=== PATIENT | male | born 1970 | race Two or more races ===

== ENCOUNTER 2016-03-26 20:44 | Emergency (ER) | payer SELFPAY ==
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
[2016-03-26] MEDS ORDERED: ACETAMINOPHEN 325 MG TABLET ONE (23:56)
[2016-03-26] MEDS ORDERED: IBUPROFEN 600 MG TABLET ONE (23:56)
[2016-03-26] MEDS ORDERED: MORPHINE SULFATE 4 MG/ML SYRINGE ONE (23:57)
[2016-03-27] MEDS ORDERED: OXYCODONE HCL 5 MG TABLET ONE (00:08)
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
== END 2016-03-27 01:14 | disposition home or self-care (01) ==
LOC: ED 20:44
DX: S43.102A Unspecified dislocation of left acromioclavicular joint, initial encounter (principal); S22.42XA Multiple fractures of ribs, left side, initial encounter for closed fracture; F17.210 Nicotine dependence, cigarettes, uncomplicated; V19.9XXA Pedal cyclist (driver) (passenger) injured in unspecified traffic accident, initial encounter; Y93.55 Activity, bike riding; Y92.410 Unspecified street and highway as the place of occurrence of the external cause
CPT/HCPCS: 71020; 73030; 94010; 99284; 99283; A9270 ×3